=== PATIENT | female | born 1935 | race Caucasian/White ===

== ENCOUNTER → 2016-05-20 | Outpatient (REF) | payer MEDICARE ==
[2016-05-20 10:25] LABS: BASOPHILS % (AUTO) 1 % (0-2); EOSINOPHILS # (AUTO) 0.1 10^3uL; EOSINOPHILS % (AUTO) 2 % (0-4); LYMPHOCYTES # (AUTO) 1.7 X10^3; MEAN CORPUSCULAR HEMOGLOBIN 29.5 PG (26.0-34.0); MEAN CORPUSCULAR HGB CONC 33.5 g/dL (31.0-37.0); MEAN CORPUSCULAR VOLUME 88 FL (80-100); MEAN PLATELET VOLUME 10.9 FL (6.0-9.5); MONOCYTES # (AUTO) 0.8 X10^3; MONOCYTES % (AUTO) 14 % (3-11); NEUTROPHILS # (AUTO) 3.4 X10^3; NEUTROPHILS % (AUTO) 56 % (51-67); PLATELET COUNT 202 10^3uL (150-450); WHITE BLOOD COUNT 6.07 10^3uL (4.0-11.0)
== END ==
LOC: LAB 10:03
PROVIDERS: ATTEND Internal Medicine
DX: K57.32 Diverticulitis of large intestine without perforation or abscess without bleeding (principal)
CPT/HCPCS: 85025; 86140

== ENCOUNTER → 2016-05-24 | Outpatient (CLI) | payer MEDICARE | LOC: LAB 10:38 | PROVIDERS: ATTEND Internal Medicine | DX: R10.32 Left lower quadrant pain (principal); K57.32 Diverticulitis of large intestine without perforation or abscess without bleeding | CPT/HCPCS: 36415; 86140 ==

== ENCOUNTER → 2016-06-17 | Outpatient (CLI) | payer MEDICARE | LOC: RAD 12:27 | PROVIDERS: ATTEND Internal Medicine | DX: R10.32 Left lower quadrant pain (principal); K57.30 Diverticulosis of large intestine without perforation or abscess without bleeding | CPT/HCPCS: 74176 ==

== ENCOUNTER → 2016-08-05 | Outpatient (CLI) | payer MEDICARE ==
[~2016-08-05] MED LIST: ALEN70TA2 PO; ALPR.25T PO; ANAS1TAB7 PO; CALC-701 PO; ERGO400C PO; FLUT16SP NSEACH; HYDR-3754 PO; NR-METANX PO; OMEP20CA12 PO; ONDA4TAB8 SL; PACL6VIA; SERT25TA; SIMV10TA PO; TRAS440V; WARF5TAB; [UNRECOGNIZED DRUG - CODE]; [UNRECOGNIZED DRUG - CODE] PO
--- NOTE | 2016-08-05 13:01 | Diagnostic Imaging Report ---
INDICATION: Osteoporosis. History of greater trochanteric bursitis. Fall three weeks ago. Study compared with pelvic radiograph 08/14/2015. There is no fracture or dislocation. 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 Superior and inferior rami, symphysis, and SI joints nonacute. No opaque loose body evident. IMPRESSION: Stable chronic findings. No fracture, erosion, or avulsion identified. Dictated by: Dictated on workstation # [id number]
== END ==
LOC: RAD 10:54
PROVIDERS: ATTEND Internal Medicine
DX: M25.552 Pain in left hip (principal); M70.62 Trochanteric bursitis, left hip; M81.0 Age-related osteoporosis without current pathological fracture
CPT/HCPCS: 72170